=== PATIENT | male | born 1940 | race Caucasian/White ===

== ENCOUNTER 2017-09-05 17:15 | Inpatient (IN) | payer MEDICARE, OTHER ==
[~2017-09-05] VITALS: Ht 182.9 cm; Wt 71.8 kg
--- NOTE | ~2017-09-05 | PSY ---
PATIENT NAME:ZAC BEJARANO MEDICAL RECORD: [id number] : 42 LOCATION:[facility] ADMISSION DATE: 09/05/17 ACCOUNT: [id number] PSYCHIATRIC EVALUATION DATE OF EVALUATION: 09/06/17 PSYCHIATRIC EVALUATION IDENTIFYING DATA: The patient is 76 years old and he is admitted to the hospital on a voluntary basis. CHIEF COMPLAINT: Psychosis. HISTORY OF PRESENT ILLNESS: The patient has been behaving bizarrely at home. He has been accusing his of tampering with the medications and his pillbox for reasons that he does not know or understand, but he says he believes there is some malice with which she is doing this. He has also been accusing his family of poisoning his dogs and has had them back and forth to the waste machine tender several times. He says he feels overwhelmed and pressured, but he is not able to give me information or specifics about why he feels this way, but he certainly is giving me a lot of descriptive terms about how overwhelmed he feels. He denies that he would seek to harm himself or others. He denies overt psychotic symptoms even though it is clear, he has some paranoia. He endorses numerous depressive symptoms. He has no history of substance abuse. PAST MEDICAL HISTORY: Significant for hypertension and osteoarthritis. PAST PSYCHIATRIC HISTORY: Significant for longstanding bipolar disorder diagnosis. He has had multiple psychiatric hospitalizations and extensive inpatient and outpatient treatments. He currently sees a psychiatrist at [facility]. In between being here in 2015, he was hospitalized at the facility in [place] in 2017. FAMILY HISTORY: Negative for psychiatric disease. 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 He has 2 adult children and has been to his for more than 50 years. He has no history of legal entanglements. ALLERGIES: CODEINE and XANAX. CURRENT MEDICATIONS: Lamictal, Seroquel, and Naprosyn. MENTAL STATUS EXAMINATION: The patient is awake, alert, and oriented to person, place, and somewhat to time and situation. His mood is depressed. His affect is constricted. Thought processes are circumstantial. Memory, concentration, and abstraction abilities are moderately impaired. He denies any active intent to harm himself or others. He denies psychotic symptoms. ASSETS: Supportive family members. LIABILITIES: Limited insight. DIAGNOSTIC IMPRESSION: AXIS I: Bipolar disorder, depressed. AXIS II: None. AXIS III: Osteoarthritis. AXIS IV: Moderate stressors. AXIS V: Global assessment of functioning is 35. PLAN: At this time, the patient is admitted to the hospital secondary to delusions associated with a bipolar disorder. He will be comprehensively evaluated from both a medical, psychological, and social standpoint. His long-term prognosis is guarded. TRANSINT:[id number] Voice Confirmation ID: [id number] DOCUMENT ID: [id number] JENARO GALINDO MD at 1001 CC: [id number] DICTATION DATE: 09/06/17 1144 HEAD FIELD HOCKEY COACH: 09/06/17 1257 ADM IN [facility] [address] [place] [id number]
--- NOTE | ~2017-09-05 | PN ---
PATIENT:ZAC BEJARANO MEDICAL RECORD: [id number] LOCATION:[facility] ADMISSION DATE: 09/05/17 PROGRESS NOTE DATE OF SERVICE: 09/15/2017 SUBJECTIVE: The patient's case was discussed with staff. He has no new complaint. OBJECTIVE: The patient denies intent to harm himself or others. He generally tolerates his medicines well. He has had some agitation, but he relates it to being anxious about being here, not being able to be outside and work in his yard, which is what he enjoys. ASSESSMENT: No change in diagnoses. PLAN: The patient will be maintained on current medicines. He is going to be transitioned to home tomorrow morning. His long-term prognosis is guarded. TRANSINT:[id number] Voice Confirmation ID: [id number] DOCUMENT ID: [id number] JENARO GALINDO MD at 1325 CC: [id number] DICTATION DATE: 09/15/17 1330 SHOTGUN SHELL LOADING MACHINE OPERATOR: 09/15/17 1350 ADM IN [address] [id number] [place] [address]
--- NOTE | ~2017-09-05 | PN ---
PATIENT:ZAC BEJARANO MEDICAL RECORD: [id number] LOCATION:[facility] ADMISSION DATE: 09/05/17 PROGRESS NOTE DATE OF SERVICE: 09/11/2017 SUBJECTIVE: The patient's case was discussed with staff. He has no new complaint. OBJECTIVE: The patient has had some anxiety and been treated with Ativan. He is generally eating and sleeping well. He has limited insight about his condition. ASSESSMENT: No change in diagnoses. PLAN: The patient's Namenda will be increased slightly. In addition to this, I am going to check a Depakote level. I anticipate it will be therapeutic. Unfortunately, the patient does not get along well with his . It is unclear if she is going to be willing to let him come home and live with her. This is what he wants to do and what his daughter wants him to do. Obviously, the only person who has not had an input into this is the who will be here this afternoon. In my opinion, the and should be and the clearly is demented, has a mental illness and is easily agitated. He gets along well with everyone except her. So at least a brief separation would seem reasonable. If he, his and daughter do not agree with that, obviously it does not rise to the level of involving the authorities, but it is not my recommendation. TRANSINT:[id number] Voice Confirmation ID: [id number] DOCUMENT ID: [id number] JENARO GALINDO MD at 1312 CC: [id number] DICTATION DATE: 09/11/17 1433 PARTNER: 09/11/17 1459 ADM IN [facility] [address] [place] [address]
--- NOTE | ~2017-09-05 | PN ---
PATIENT:ZAC BEJARANO MEDICAL RECORD: [id number] LOCATION:[facility] ADMISSION DATE: 09/05/17 PROGRESS NOTE DATE OF SERVICE: 09/12/2017 SUBJECTIVE: No new complaint. OBJECTIVE: The patient continues to be quite confused. He did not require p.r.n. medication yesterday, which is an improvement. Discharge plans are pending. On exam, mood for the most part euthymic. Affect is constricted. Speech is terse. Content of thought is unchanged. Sensorium unchanged. ASSESSMENT: No change in diagnosis. PLAN: 1. Continue current medication. 2. Continue supportive therapy. TRANSINT:[id number] Voice Confirmation ID: [id number] DOCUMENT ID: [id number] KATHI CORNEJO III, MD at 0841 CC: [id number] DICTATION DATE: 09/12/17 1032 PACKING SHED SUPERVISOR: 09/12/17 1111 ADM IN [facility] [address] [place] [address]
--- NOTE | ~2017-09-05 | PN ---
PATIENT:ZAC BEJARANO MEDICAL RECORD: [id number] LOCATION:[facility] ADMISSION DATE: 09/05/17 PROGRESS NOTE DATE OF SERVICE: 09/07/2017 SUBJECTIVE: The patient's case was discussed with staff. He has no new complaint. OBJECTIVE: The patient is labile, but not openly aggressive. ASSESSMENT: No change in diagnoses. PLAN: The patient is going to be started on Depakote at a dose of 250 mg twice daily. The patient's Lamictal will be titrated downward. TRANSINT:[id number] Voice Confirmation ID: [id number] DOCUMENT ID: [id number] JENARO GALINDO MD at 1409 CC: [id number] DICTATION DATE: 09/07/17 1031 GARMENT SUPERVISOR: 09/07/17 1700 ADM IN [id number] [place] [address]
--- NOTE | ~2017-09-05 | PN ---
PATIENT:ZAC BEJARANO MEDICAL RECORD: [id number] LOCATION:[facility] ADMISSION DATE: 09/05/17 PROGRESS NOTE DATE OF SERVICE: 09/10/2017 SUBJECTIVE: No new complaint is offered. OBJECTIVE: The patient has been pleasant. He responds well to p.r.n. Ativan. On exam, mood is for the most part euthymic. Affect is bland. Speech is terse. Content of thought is negative for overt psychosis. Sensorium unchanged. ASSESSMENT: No change in diagnosis. PLAN: 1. Maintain current medication. 2. Continue supportive therapy. TRANSINT:[id number] Voice Confirmation ID: [id number] DOCUMENT ID: [id number] KATHI CORNEJO III, MD at 0736 CC: [id number] DICTATION DATE: 09/10/17 0955 BOOKMAKER MAP: 09/10/17 1345 ADM IN [place] [id number] [place] [id number]
--- NOTE | ~2017-09-05 | DS ---
PATIENT:ZAC BEJARANO :42 MEDICAL RECORD: [id number] DISCHARGE SUMMARY ADMISSION DATE: 09/05/17 DISCHARGE DATE: 09/16/17 IDENTIFYING DATA: The patient is 76 years old and he is admitted to the hospital on a voluntary basis because of psychosis. The patient had been living at home with his and he was accusing her of tampering with his medicines. He also thought that she was poisoning his dogs. He was delusional. There was no evidence of any of this. He had been not sleeping well, agitated and was having some depressive symptoms and some symptoms of kristal. He had not been taking his medicines because he thought his was doing something to the capsules. HOSPITAL COURSE: The patient was admitted to the hospital and comprehensively evaluated from both a medical, psychiatric, and social standpoint. He was found to have a bipolar disorder that was in the depressed phase and he was treated with both mood stabilizing and antidepressant medications. He did show improvement through the course of his hospitalization and had a disappearance of his psychotic symptoms and an elevation in his mood. He was subsequently discharged home. He was not having any delusional thoughts regarding his and had no animosity toward her and he wanted to go home and live with her and she wanted him to come home and live in their home. DISCHARGE DIAGNOSES: AXIS I: Bipolar disorder, depressed phase. AXIS II: None. AXIS III: Osteoarthritis. AXIS IV: Moderate stressors. AXIS V: Global Assessment of Functioning is 40. PLAN: At the time of discharge, the patient was in good behavioral control with no significant evidence of psychotic symptoms and no evidence of depression. He had no evidence of acute dangerousness to himself or others. He was tolerating his medications well, understood the relative risks and benefits of them, and participated in formulating his outpatient treatment plan. He is to continue current medications and will see his primary care doctor and an outpatient psychiatrist. TRANSINT:[id number] Voice Confirmation ID: [id number] DOCUMENT ID: [id number] JENARO GALINDO MD at 1352 CC: [id number] DICTATION DATE: 09/23/17 1440 SENIOR INTERACTION DESIGNER: 09/24/17 0959 DIS IN 09/16/[id number] [place] [address]
--- NOTE | ~2017-09-05 | PN ---
PATIENT:ZAC BEJARANO MEDICAL RECORD: [id number] LOCATION:[facility] ADMISSION DATE: 09/05/17 PROGRESS NOTE DATE OF SERVICE: 09/08/2017 SUBJECTIVE: The patient's case was discussed with staff. He has no new complaint. OBJECTIVE: The patient denies any intent to harm himself or others. He has been cooperative. He is eating 100% of his meals and slept 10 hours last night. ASSESSMENT: No change in diagnoses. PLAN: Supportive and educational interventions were made. The patient's POA, who happens to be his daughter, is concerned about dementia and I think that is a reasonable issue. I am going to ask Dr. Lynsey Hays to test him. In addition to this, I am going to discontinue his Neurontin and probably tomorrow we will increase the dose of his Depakote. TRANSINT:[id number] Voice Confirmation ID: [id number] DOCUMENT ID: [id number] JENARO GALINDO MD at 1325 CC: [id number] DICTATION DATE: 09/08/17 1426 PRODUCT MARKETING CONSULTANT: 09/08/17 1537 ADM IN [facility] [address] [place] [address]
--- NOTE | ~2017-09-05 | PN ---
PATIENT:ZAC BEJARANO MEDICAL RECORD: [id number] LOCATION:[facility] ADMISSION DATE: 09/05/17 PROGRESS NOTE DATE OF SERVICE: 09/09/2017 SUBJECTIVE: The patient's case was discussed with staff. He has no new complaint. OBJECTIVE: The patient has no evidence of kristal. He generally tolerates his medicines well. ASSESSMENT: No change in diagnoses. PLAN: The patient scored [address] Lynsey Hays's testing. This clearly puts him in the moderate range of impairment. He will be started on Namenda at a dose of 2.5 mg twice daily. Given the difficulties he has had getting along with his and the improvement he has had here, I am hopeful that a solution can be made that would meet his needs, but keep him in a home environment. I have discussed this with the treatment team and his daughter at a later date. TRANSINT:[id number] Voice Confirmation ID: [id number] DOCUMENT ID: [id number] JENARO GALINDO MD at 1409 CC: [id number] DICTATION DATE: 09/09/17 1730 ENVIRONMENTAL FIELD OFFICE MANAGER: 09/09/17 1851 ADM IN [facility] [address] [place] [id number]
--- NOTE | ~2017-09-05 | PN ---
PATIENT:ZAC BEJARANO MEDICAL RECORD: [id number] LOCATION:[facility] ADMISSION DATE: 09/05/17 PROGRESS NOTE DATE OF SERVICE: 09/16/2017 SUBJECTIVE: The patient's case was discussed with staff. He has no new complaint. OBJECTIVE: The patient is in good behavioral control with poor insight about his condition. He tolerates his medicines well. ASSESSMENT: No change in diagnoses. PLAN: The patient will be transitioned out of the hospital today. He is not representing an acute risk to himself or others. He is tolerating his medicines well. He does have a therapeutic level of Depakote and is displaying no evidence of mood lability. Followup will be with his primary care physician. TRANSINT:[id number] Voice Confirmation ID: [id number] DOCUMENT ID: [id number] JENARO GALINDO MD at 1200 CC: [id number] DICTATION DATE: 09/16/17 1334 MERCHANT MARINER: 09/16/17 1420 DIS IN [id number] [place] [address]
[~2017-09-05 17:15] MED LIST: BUPROPION XL150 MG PO; DEPAKOTE500 MG PO; IMITREX50 MG PO; LAMICTAL100 MG PO; NAPROSYN500 MG PO; PROSCAR5 MG PO; SEROQUEL25 MG PO; ZANAFLEX2 M1 PO
[2017-09-05] MEDS ORDERED: SEROQUEL25 MG PO (18:48)
[2017-09-05 19:17] VITALS: BP 106/74
[2017-09-05 19:32] LABS: CHOL - HDL RATIO 2.2 ratio (2.3-4.9); LDL-HDL RATIO 1.1 ratio (1.5-3.5); THYROID STIMULATING HORMONE 0.89 uIU/mL (0.36-3.74)
[2017-09-06 05:14] VITALS: BP 106/74; BMI 21.4
[2017-09-06 07:24] VITALS: BP 136/80
[2017-09-06 11:28] VITALS: BMI 21.4
[2017-09-06 14:27] LABS: BASOPHILS 0.5 % (0-2); EOSINOPHILS 0 % (0-7); HEMATOCRIT 42.1 % (42.0-54.0); HEMOGLOBIN 14.5 g/dL (13.5-17.5); LYMPHOCYTES 34.7 % (15-50); MCH 31.3 pg (26.0-34.0); MCHC 34.4 g/dL (31.0-37.0); MCV 90.7 fL (80.0-100.0); NEUTROPHILS 54.8 % (40-80); PLATELET COUNT 136 10x3/uL (130-400); RBC 4.64 10x6/uL (4.20-6.10); RDW 13.3 % (11.5-14.5); WBC 2.2 10x3/uL (4.8-10.8)
[2017-09-06 14:36] LABS: ANION GAP 12.7 mmol/L (8-16); CALCIUM 8.4 mg/dL (8.5-10.1); CARBON DIOXIDE 27.1 mmol/L (21.0-32.0); CREATININE - SERUM 1.4 mg/dL (0.6-1.3); POTASSIUM - SERUM 3.8 mmol/L (3.5-5.1)
[2017-09-06 19:40] VITALS: BP 102/75
[2017-09-07 07:00] VITALS: BP 133/83
[2017-09-07 20:25] VITALS: BP 104/56
[2017-09-08 08:09] LABS: VITAMIN D 25 HYDROXY 39.1 ng/mL (30.0-100.0)
[2017-09-08 08:30] VITALS: BP 111/70
[2017-09-08 08:46] VITALS: Ht 182.9 cm; Wt 71.8 kg
[2017-09-08 14:17] LABS: FOLATE (FOLIC ACID) - SERUM 12.3 ng/mL (>3.0)
[2017-09-08 21:02] VITALS: BP 119/68
[2017-09-09 05:15] LABS: RAPID PLASMA REAGIN Non Reactive (Non Reactive)
[2017-09-09 07:46] VITALS: BP 133/88
[2017-09-09 20:19] VITALS: BP 132/89
[2017-09-10 07:59] VITALS: BP 139/80
[2017-09-10 19:22] VITALS: BP 143/67
[2017-09-11 08:22] VITALS: BP 150/86
[2017-09-11 19:54] VITALS: BP 145/91
[2017-09-12 08:02] VITALS: BP 116/56
[2017-09-12 20:03] VITALS: BP 128/87
[2017-09-13 09:26] VITALS: BP 156/88
[2017-09-13 20:50] VITALS: BP 143/84
[2017-09-14 07:56] VITALS: BP 139/90
[2017-09-14 19:47] VITALS: BP 125/74
[2017-09-15 07:00] VITALS: BP 121/77
[2017-09-15] MEDS ORDERED: DEPAKOTE500 MG PO (13:15)
[2017-09-15] MEDS ORDERED: SENNA8.6 MG PO (13:16)
[2017-09-15] MEDS ORDERED: NAMENDA5 MG PO (13:16)
[2017-09-15] MEDS ORDERED: PERPHENAZINE2 MG PO (13:16)
[2017-09-15] MEDS ORDERED: PEPCID20 MG PO (13:16)
[2017-09-15 19:46] VITALS: BP 113/58
[2017-09-16 09:24] VITALS: BP 138/91
== END 2017-09-16 13:05 | disposition home or self-care (01) | DRG 885 ==
LOC: D.PSYCH 17:15
PROVIDERS: Psychiatry & Neurology Psychiatry
DX: F31.10 Bipolar disorder, current episode manic without psychotic features, unspecified (principal); F02.81 Dementia in other diseases classified elsewhere, unspecified severity, with behavioral disturbance; G30.9 Alzheimer's disease, unspecified; R51 Headache; M19.90 Unspecified osteoarthritis, unspecified site; N40.0 Benign prostatic hyperplasia without lower urinary tract symptoms